=== PATIENT | male | born 1965 | race Hispanic/Latino ===

== ENCOUNTER 2020-12-28 14:24 | Inpatient (IN) | payer MEDICAID, OTHER ==
[~2020-12-28 14:24] MED LIST: Iopamidol-370 76% 500 ML 1 ML ONE
[2020-12-28 14:57] LABS: Hemoglobin 16.2 g/dL (14.0-18.0); Mean Corpuscular HGB CONC 30.6 g/dL (32.0-36.0); Mean Platelet Volume 7.8 fL (7.4-10.4); Platelet Count 256 thou/uL (130-400); Red Blood Cell (RBC) Count 4.91 mill/uL (4.70-6.10)
[2020-12-28 15:16] LABS: Lymphocytes 7 % (21-51); MDiff Complete? YES; Macrocytosis SLIGHT = 6-15 cells (100X) (0-5/hpf); Monocytes 6 % (0-10); Neutrophil 87 % (42-75); Nucleated RBC 1 % (0); Platelet Morphology Comment Appears Adequate; Polychromasia SLIGHT = 2-3 cells (100X) (0-2/hpf); White Blood Cell (WBC) Count 15.5 thou/uL (4.8-10.8)
[2020-12-28 15:21] LABS: Acetaminophen Less than 6.0 mcg/mL (10.0-30.0); Alcohol Less than 10 mg/dL (Less than 10); Salicylate Less than 8.0 mg/dL (15.0-30.0)
[2020-12-28 15:22] LABS: Actual Bicarbonate (HCO3a) 29.9 mEq/L (22-28); Analyzer IN Cardio ER; Base Excess (BEa) 1.3 mEq/L (-2.0 to +3.0); Calcium, Ionized (arterial) 1.18 mmol/L (1.12-1.30); Carboxyhemoglobin (COHb) 3.7 gm% (0.0-3.0); Hemoglobin (Hb) 15.4 g/dL (14.0-18.0); O2 Tension (PaO2), arterial 71.6 mmHg (80.0-100.0); Potassium - ABG Lab 4.51 mmol/L (3.70-5.30); pH, Arterial 7.28 (7.35-7.45)
[2020-12-28 15:26] LABS: ALV-art Gradient 204.275 mmHg (0-20); CO2 Tension 64.5 mmHg (35.0-45.0); Puncture Site RRA
[2020-12-28] MEDS ORDERED: Vancomycin 1 GM/200 ML BAG ONE ×2 (15:26→18:52)
[2020-12-28] MEDS ORDERED: Cefepime 2 GM VIAL ONE (15:26)
[2020-12-28 15:28] LABS: ALT (SGPT) 196 U/L (8-55); AST (SGOT) 194 U/L (5-34); Albumin 3.3 g/dL (3.5-5.0); Alkaline Phosphatase 235 U/L (40-110); Anion Gap 18 mmol/L (10-20); BUN (Urea Nitrogen) 37 mg/dL (8.4-25.7); Bilirubin, Total 0.9 mg/dL (0.2-1.2); Calc. Creatinine Clearance 0 mL/min (70-130); Calcium 9.7 mg/dL (7.8-10.44); Carbon Dioxide 30 mmol/L (22-29); Chloride 100 mmol/L (98-107); Globulin 3.3 g/dL (2.4-3.5); Glucose 104 mg/dL (70-105); Potassium 5.5 mmol/L (3.5-5.1); Protein, Total 6.6 g/dL (6.0-8.3); Sodium 142 mmol/L (136-145)
[2020-12-28 15:52] LABS: Bacteria/HPF None Seen HPF (None Seen); Bilirubin Negative (Negative); Blood, Urine Trace (Negative); Clarity Turbid (Clear); Glucose, Urine (Dipstick) Normal (Negative); Ketone, Urine Negative (Negative); Leukocyte Negative Leu/uL (Negative); Nitrite Negative (Negative); Protein, Urine (Dipstick) 300 mg/dL (Neg-Trace); RBC/HPF 0-3 HPF (0-3); Specific Gravity, Urine 1.027 (1.002-1.036); Squamous Epithelial 0-3 HPF (0-3); Urobilinogen Normal mg/dL (Less than 2); WBC/HPF 0-3 HPF (0-3)
[2020-12-28 15:59] LABS: CKMB 12.5 ng/mL (0-6.6)
[2020-12-28 16:02] LABS: Amphetamine Not Detected (NotDetected); Barbiturates Screen Not Detected (NotDetected); Benzodiazepine Screen Not Detected (NotDetected); Cocaine Metabolite Screen Not Detected (NotDetected); Medtox Control Line Valid? VALID (VALID); Medtox Reader # READER 1; Methadone Not Detected (NotDetected); Methamphetamine Not Detected (NotDetected); Opiate Screen Detected (NotDetected); Oxycodone Screen Not Detected (NotDetected); Phencyclidine (PCP) Not Detected (NotDetected); THC/Cannabinoid Screen Not Detected (NotDetected); Tricyclic Screen Not Detected (NotDetected)
[2020-12-28 16:31] LABS: SARS-CoV-2 NAA Rapid Test Not Detected (NotDetected)
[2020-12-28] MEDS ORDERED: Norepinephrine 8 MG/0.9% NS 250 ML ONE (16:58)
[2020-12-28] MEDS ORDERED: Naloxone HCl 2 mg/2 ml Syringe ONE (17:08)
[2020-12-28] MEDS ORDERED: Succinylcholine 200 MG/10 ml SYRINGE FS ONE (17:31)
[2020-12-28] MEDS ORDERED: Rocuronium Bromide 10 MG/ML (10ML VIAL) ONE ×2 (17:38)
[2020-12-28] MEDS ORDERED: Propofol 1,000 MG/100 ML VIAL IV ONE (17:41)
[2020-12-28] MEDS ORDERED: Midazolam HCl 5 mg/ml Vial ONE (17:46)
[2020-12-28 18:35] LABS: Analyzer IN Cardio ER; Base Excess (BEa) -1.1 mEq/L (-2.0 to +3.0); Calcium, Ionized (arterial) 1.19 mmol/L (1.12-1.30); Carboxyhemoglobin (COHb) 2.2 gm% (0.0-3.0); Hemoglobin (Hb) 16.6 g/dL (14.0-18.0); O2 Tension (PaO2), arterial 87.7 mmHg (80.0-100.0); Potassium - ABG Lab 4.44 mmol/L (3.70-5.30); pH, Arterial 7.32 (7.35-7.45)
[2020-12-28 18:37] LABS: Puncture Site RRA
[2020-12-28] MEDS ORDERED: Vancomycin 1.5 GRAM/300 ML BAG 1.5 GM in Premix Bag 1 BAG IVPB SCH (19:15)
[2020-12-28] MEDS ORDERED: Vancomycin HCl 1 GM in Sodium Chloride 0.9% 250 ML 250 ML IVPB SCH (19:15)
[2020-12-28] MEDS ORDERED: Electrolyte Replacement Protocol 1 EACH FS ONE (20:16)
[2020-12-28] MEDS ORDERED: Ventilator Sedation Protocol 1 EACH FS ONE (20:16)
[2020-12-28] MEDS ORDERED: Sodium Chloride 0.9% 1,000 ML IV SCH (20:30)
[2020-12-28] MEDS: Sodium Chloride 0.9% 1,000 ML IV SCH (20:36)
[2020-12-28] MEDS ORDERED: Morphine 2 MG/ML VIAL SLOW IVP PRN (20:45)
[2020-12-28] MEDS ORDERED: Propofol BOLUS 1,000 MG/100 ML VIAL IV PRN (20:45)
[2020-12-28] MEDS ORDERED: Electrolyte Replacement Protocol FS PRN (20:45)
[2020-12-28] MEDS ORDERED: Fentanyl BOLUS 250 ML IVPB PRN (20:45)
[2020-12-28] MEDS ORDERED: DISCONTINUE PREVIOUS NARCOTIC PAIN MEDICATIONS AND BENZODIAZEPINES FS SCH (20:45)
[2020-12-28] MEDS: Ascorbic Acid 500 mg Chewable Tablet PER TUBE SCH (21:32)
[2020-12-28] MEDS ORDERED: Ondansetron PF 4 MG/2 ML Vial IVP PRN (22:05)
[2020-12-28] MEDS ORDERED: Acetaminophen 325 MG TAB PO PRN (22:05)
[2020-12-28 23:13] LABS: Troponin I 1.184 ng/mL (< 0.028)
[2020-12-29 01:32] LABS: Critical Call Chem Troponin I RESULT DECREASING; Troponin I 1.037 ng/mL (< 0.028)
[2020-12-29] MEDS: Propofol 1,000 MG/100 ML VIAL IV PRN ×2 (01:36→10:43)
[2020-12-29] MEDS: Cefepime 1 GM in Sodium Chloride 0.9% 100 ML IVPB SCH ×2 (02:23→16:30)
[2020-12-29 04:28] LABS: Hemoglobin 14.3 g/dL (14.0-18.0); Mean Corpuscular HGB CONC 30.2 g/dL (32.0-36.0); Mean Corpuscular Hemoglobin 31.9 pg (27.0-31.0); Mean Platelet Volume 7.7 fL (7.4-10.4); Platelet Count 186 thou/uL (130-400); RBC Distribution Width 13.8 % (11.5-14.5); White Blood Cell (WBC) Count 12.4 thou/uL (4.8-10.8)
[2020-12-29 04:49] LABS: Lymphocytes 2 % (21-51); MDiff Complete? YES; Monocytes 2 % (0-10); Neutrophil 96 % (42-75); Nucleated RBC 1 % (0); Platelet Morphology Comment Appears Adequate
[2020-12-29 04:59] LABS: ALT (SGPT) 133 U/L (8-55); AST (SGOT) 115 U/L (5-34); Albumin 2.5 g/dL (3.5-5.0); Alkaline Phosphatase 160 U/L (40-110); Anion Gap 12 mmol/L (10-20); BUN (Urea Nitrogen) 31 mg/dL (8.4-25.7); Bilirubin, Total 0.9 mg/dL (0.2-1.2); Calc. Creatinine Clearance 77 mL/min (70-130); Calcium 8.4 mg/dL (7.8-10.44); Carbon Dioxide 27 mmol/L (22-29); Chloride 106 mmol/L (98-107); Globulin 2.4 g/dL (2.4-3.5); Glucose 82 mg/dL (70-105); Potassium 3.8 mmol/L (3.5-5.1); Protein, Total 4.9 g/dL (6.0-8.3); Sodium 141 mmol/L (136-145)
[2020-12-29 07:51] LABS: Actual Bicarbonate (HCO3a) 26.5 mEq/L (22-28); Base Excess (BEa) 3.1 mEq/L (-2.0 to +3.0); CO2 Tension 36.6 mmHg (35.0-45.0); Calcium, Ionized (arterial) 1.14 mmol/L (1.12-1.30); Carboxyhemoglobin (COHb) 0.9 gm% (0.0-3.0); Potassium - ABG Lab 3.98 mmol/L (3.70-5.30); pH, Arterial 7.48 (7.35-7.45)
[2020-12-29 07:52] LABS: O2 Tension (PaO2), arterial 45.7 mmHg (80.0-100.0)
[2020-12-29 07:53] LABS: Puncture Site LRA
[2020-12-29] MEDS: Ascorbic Acid 500 mg Chewable Tablet PER TUBE SCH ×2 (08:09→20:42)
[2020-12-29] MEDS: Sodium Chloride 0.9% 1,000 ML IV SCH ×2 (08:09→16:34)
[2020-12-29] MEDS: Pantoprazole 40 MG VIAL IVP SCH (08:09)
[2020-12-29] MEDS ORDERED: Enoxaparin Sodium 40 MG/0.4 ML SYRINGE SC SCH (09:00)
[2020-12-29] MEDS ORDERED: Prevnar 13-Val Conj/PF 0.5 ML SYRINGE IM ONE (09:00)
[2020-12-29] MEDS ORDERED: Fentanyl CADD 100 ML ONE (12:26)
[2020-12-29] MEDS: Fentanyl CADD 100 ML IV SCH (12:35)
[2020-12-29] MEDS: HEMLIBRA SC SCH (12:35)
[2020-12-29] MEDS ORDERED: Vancomycin 1.5 GRAM/300 ML BAG 1.5 GM in Premix Bag 1 BAG IVPB SCH (20:00)
[2020-12-29] MEDS: Lopinavir/Ritonavir 80 MG/20 MG per ML Oral Solution PER TUBE SCH (20:42)
[2020-12-29] MEDS: Vancomycin HCl 1.5 GM in Sodium Chloride 0.9% 250 ML 300 ML IVPB SCH (21:13)
[2020-12-29] MEDS: Norepinephrine 8 MG/0.9% NS 250 ML IVPB PRN (21:59)
[2020-12-30] MEDS ORDERED: Fentanyl CADD 100 ML ONE ×3 (00:16→20:56)
[2020-12-30] MEDS: Cefepime 1 GM in Sodium Chloride 0.9% 100 ML IVPB SCH ×2 (04:01→14:13)
[2020-12-30] MEDS: Sodium Chloride 0.9% 1,000 ML IV SCH (04:06)
[2020-12-30] MEDS: Propofol 1,000 MG/100 ML VIAL IV PRN ×2 (04:14→21:31)
[2020-12-30 05:12] LABS: Band 2 % (5-11); Hemoglobin 14.2 g/dL (14.0-18.0); Lymphocytes 3 % (21-51); MDiff Complete? YES; Mean Corpuscular Hemoglobin 32.5 pg (27.0-31.0); Mean Platelet Volume 7.9 fL (7.4-10.4); Monocytes 4 % (0-10); Neutrophil 91 % (42-75); Nucleated RBC 2 % (0); Platelet Count 196 thou/uL (130-400); Platelet Morphology Comment Appears Adequate; RBC Distribution Width 14.1 % (11.5-14.5); RBC Morphology Normal; Red Blood Cell (RBC) Count 4.37 mill/uL (4.70-6.10); White Blood Cell (WBC) Count 11.8 thou/uL (4.8-10.8)
[2020-12-30 05:15] LABS: ALT (SGPT) 98 U/L (8-55); AST (SGOT) 82 U/L (5-34); Albumin 2.5 g/dL (3.5-5.0); Alkaline Phosphatase 140 U/L (40-110); Anion Gap 12 mmol/L (10-20); BUN (Urea Nitrogen) 26 mg/dL (8.4-25.7); Bilirubin, Total 1.6 mg/dL (0.2-1.2); Calc. Creatinine Clearance 96 mL/min (70-130); Calcium 8.4 mg/dL (7.8-10.44); Carbon Dioxide 25 mmol/L (22-29); Cardiac Risk 2.8 (Less than 4.5); Chloride 109 mmol/L (98-107); Cholesterol 91 mg/dl (< 200 Desired); Globulin 2.6 g/dL (2.4-3.5); Glucose 88 mg/dL (70-105); HDL Cholesterol 32 mg/dL (>60 Neg Risk); LDL Cholesterol, Calculated 43 mg/dL; Potassium 3.7 mmol/L (3.5-5.1); Protein, Total 5.1 g/dL (6.0-8.3); Sodium 142 mmol/L (136-145); Triglycerides 80 mg/dL (Less than 150)
[2020-12-30 07:00] LABS: Actual Bicarbonate (HCO3a) 23.9 mEq/L (22-28); Base Excess (BEa) 0.7 mEq/L (-2.0 to +3.0); CO2 Tension 34.5 mmHg (35.0-45.0); Calcium, Ionized (arterial) 1.15 mmol/L (1.12-1.30); Carboxyhemoglobin (COHb) 0.9 gm% (0.0-3.0); Hemoglobin (Hb) 14.8 g/dL (14.0-18.0); O2 Tension (PaO2), arterial 72.7 mmHg (80.0-100.0); Potassium - ABG Lab 3.83 mmol/L (3.70-5.30); pH, Arterial 7.46 (7.35-7.45)
[2020-12-30 07:03] LABS: ALV-art Gradient 383.275 mmHg (0-20); Puncture Site RRA
[2020-12-30] MEDS: Pantoprazole 40 MG VIAL IVP SCH (08:15)
[2020-12-30] MEDS: Lopinavir/Ritonavir 80 MG/20 MG per ML Oral Solution PER TUBE SCH ×2 (08:15→21:03)
[2020-12-30] MEDS: Ascorbic Acid 500 mg Chewable Tablet PER TUBE SCH ×2 (08:15→21:03)
[2020-12-30 19:28] LABS: Vancomycin, Trough 10.9 ug/mL
[2020-12-30] MEDS ORDERED: Vancomycin 1.5 GRAM/300 ML BAG 1.5 GM in Premix Bag 1 BAG IVPB SCH (20:00)
[2020-12-30] MEDS: Fentanyl CADD 100 ML IV SCH (21:00)
[2020-12-30] MEDS: Vancomycin HCl 1.5 GM in Sodium Chloride 0.9% 250 ML 300 ML IVPB SCH (21:28)
[2020-12-31] MEDS: Cefepime 1 GM in Sodium Chloride 0.9% 100 ML IVPB SCH ×2 (03:35→14:56)
[2020-12-31 04:41] LABS: #Eosinphils 0.1 thou/uL (0.0-0.7); #Lymphocytes 0.6 thou/uL (1.20-3.40); #Monocytes 0.8 thou/uL (0.11-0.59); #Neutrophils 10.3 thou/uL (1.40-6.50); %Eosinophils 0.7 % (0.0-10.0); %Lymphocytes 4.9 % (21.0-51.0); %Monocytes 6.7 % (0.0-10.0); %Neutrophils 87.7 % (42.0-75.0); Mean Corpuscular Hemoglobin 31.8 pg (27.0-31.0); Mean Platelet Volume 7.7 fL (7.4-10.4); Platelet Count 182 thou/uL (130-400); RBC Distribution Width 13.8 % (11.5-14.5); White Blood Cell (WBC) Count 11.7 thou/uL (4.8-10.8)
[2020-12-31 05:02] LABS: ALT (SGPT) 78 U/L (8-55); AST (SGOT) 77 U/L (5-34); Albumin 2.5 g/dL (3.5-5.0); Alkaline Phosphatase 137 U/L (40-110); Anion Gap 11 mmol/L (10-20); BUN (Urea Nitrogen) 22 mg/dL (8.4-25.7); Bilirubin, Total 1.8 mg/dL (0.2-1.2); Calc. Creatinine Clearance 109 mL/min (70-130); Calcium 8.9 mg/dL (7.8-10.44); Carbon Dioxide 27 mmol/L (22-29); Chloride 109 mmol/L (98-107); Globulin 2.8 g/dL (2.4-3.5); Glucose 99 mg/dL (70-105); Potassium 3.9 mmol/L (3.5-5.1); Protein, Total 5.3 g/dL (6.0-8.3); Sodium 143 mmol/L (136-145)
[2020-12-31] MEDS: Propofol 1,000 MG/100 ML VIAL IV PRN ×2 (06:08→14:17)
[2020-12-31 07:21] LABS: Actual Bicarbonate (HCO3a) 26.8 mEq/L (22-28); Base Excess (BEa) 0.5 mEq/L (-2.0 to +3.0); CO2 Tension 49.4 mmHg (35.0-45.0); Calcium, Ionized (arterial) 1.21 mmol/L (1.12-1.30); Carboxyhemoglobin (COHb) 0.9 gm% (0.0-3.0); Hemoglobin (Hb) 14.8 g/dL (14.0-18.0); Potassium - ABG Lab 3.84 mmol/L (3.70-5.30); pH, Arterial 7.35 (7.35-7.45)
[2020-12-31 07:24] LABS: O2 Tension (PaO2), arterial 53.5 mmHg (80.0-100.0); Puncture Site RRA
[2020-12-31] MEDS ORDERED: Fentanyl CADD 100 ML ONE (07:25)
[2020-12-31] MEDS: DOBUTamine 500 mg/250 ml 250 ML IVPB SCH (08:33)
[2020-12-31] MEDS ORDERED: Vancomycin 1 GM in Premix Bag 1 BAG IVPB SCH (09:00)
[2020-12-31] MEDS: Lopinavir/Ritonavir 80 MG/20 MG per ML Oral Solution PER TUBE SCH ×2 (09:20→21:15)
[2020-12-31] MEDS: Pantoprazole 40 MG VIAL IVP SCH (09:21)
[2020-12-31] MEDS: Ascorbic Acid 500 mg Chewable Tablet PER TUBE SCH ×2 (09:21→21:15)
[2020-12-31] MEDS: Lorazepam 2 MG/ML VIAL SLOW IVP PRN (12:03)
[2020-12-31] MEDS: Norepinephrine 8 MG/0.9% NS 250 ML IVPB PRN (13:16)
[2020-12-31] MEDS ORDERED: Morphine 4 MG/ML VIAL SLOW IVP PRN (13:45)
[2021-01-01] MEDS ORDERED: Fentanyl CADD 100 ML ONE ×2 (02:09→16:12)
[2021-01-01] MEDS: Cefepime 1 GM in Sodium Chloride 0.9% 100 ML IVPB SCH ×2 (02:13→14:24)
[2021-01-01] MEDS: Fentanyl CADD 100 ML IV SCH ×2 (02:13→16:15)
[2021-01-01 06:13] LABS: ALT (SGPT) 62 U/L (8-55); AST (SGOT) 49 U/L (5-34); Albumin 2.5 g/dL (3.5-5.0); Alkaline Phosphatase 129 U/L (40-110); Anion Gap 8 mmol/L (10-20); BUN (Urea Nitrogen) 20 mg/dL (8.4-25.7); Bilirubin, Total 1.5 mg/dL (0.2-1.2); Calc. Creatinine Clearance 122 mL/min (70-130); Calcium 8.4 mg/dL (7.8-10.44); Carbon Dioxide 29 mmol/L (22-29); Chloride 109 mmol/L (98-107); Globulin 2.9 g/dL (2.4-3.5); Glucose 99 mg/dL (70-105); Potassium 4.3 mmol/L (3.5-5.1); Protein, Total 5.4 g/dL (6.0-8.3); Sodium 142 mmol/L (136-145)
[2021-01-01 07:08] LABS: #Eosinphils 0.1 thou/uL (0.0-0.7); #Lymphocytes 0.6 thou/uL (1.20-3.40); #Monocytes 0.9 thou/uL (0.11-0.59); #Neutrophils 8.7 thou/uL (1.40-6.50); %Basophils 0.3 % (0.0-1.0); %Eosinophils 1.3 % (0.0-10.0); %Lymphocytes 5.4 % (21.0-51.0); %Monocytes 9.1 % (0.0-10.0); Hemoglobin 14.2 g/dL (14.0-18.0); Mean Corpuscular HGB CONC 30.3 g/dL (32.0-36.0); Mean Corpuscular Hemoglobin 32.3 pg (27.0-31.0); Mean Platelet Volume 7.8 fL (7.4-10.4); Platelet Count 166 thou/uL (130-400); RBC Distribution Width 14.1 % (11.5-14.5); Red Blood Cell (RBC) Count 4.39 mill/uL (4.70-6.10); White Blood Cell (WBC) Count 10.4 thou/uL (4.8-10.8)
[2021-01-01 07:09] LABS: RBC Morphology Normal
[2021-01-01 07:22] LABS: Base Excess (BEa) -1.5 mEq/L (-2.0 to +3.0); CO2 Tension 48.4 mmHg (35.0-45.0); Calcium, Ionized (arterial) 1.23 mmol/L (1.12-1.30); Carboxyhemoglobin (COHb) 0.9 gm% (0.0-3.0); Hemoglobin (Hb) 16.8 g/dL (14.0-18.0); Potassium - ABG Lab 4.22 mmol/L (3.70-5.30); pH, Arterial 7.33 (7.35-7.45)
[2021-01-01 07:43] LABS: O2 Tension (PaO2), arterial 50.3 mmHg (80.0-100.0)
[2021-01-01 07:44] LABS: Puncture Site RRA
[2021-01-01] MEDS: Lopinavir/Ritonavir 80 MG/20 MG per ML Oral Solution PER TUBE SCH ×2 (09:41→20:42)
[2021-01-01] MEDS: Ascorbic Acid 500 mg Chewable Tablet PER TUBE SCH ×2 (09:41→20:42)
[2021-01-01] MEDS: Pantoprazole 40 MG GRANULES PACKET PER TUBE SCH (09:41)
[2021-01-01] MEDS: Furosemide 40 MG/4 ML VIAL SLOW IVP SCH ×2 (09:41→20:42)
[2021-01-01] MEDS: Norepinephrine 8 MG/0.9% NS 250 ML IVPB PRN (10:10)
[2021-01-01] MEDS: Lorazepam 2 MG/ML VIAL SLOW IVP PRN (10:10)
[2021-01-01] MEDS: methylPREDNISolone Sod Succ 40 MG VIAL IVP SCH ×2 (12:26→18:15)
[2021-01-01] MEDS: Propofol 1,000 MG/100 ML VIAL IV PRN ×3 (13:56→20:42)
[2021-01-01] MEDS: DOBUTamine 500 mg/250 ml 250 ML IVPB SCH (22:54)
[2021-01-02] MEDS: methylPREDNISolone Sod Succ 40 MG VIAL IVP SCH ×5 (00:26→23:43)
[2021-01-02] MEDS: Metoclopramide HCl 10 MG/2 ML VIAL IVP SCH ×4 (02:00→20:38)
[2021-01-02] MEDS ORDERED: Fentanyl CADD 100 ML ONE ×2 (03:22→15:59)
[2021-01-02] MEDS: Cefepime 1 GM in Sodium Chloride 0.9% 100 ML IVPB SCH ×2 (03:34→15:21)
[2021-01-02] MEDS: Lorazepam 2 MG/ML VIAL SLOW IVP PRN ×3 (03:52→13:48)
[2021-01-02] MEDS: Fentanyl CADD 100 ML IV SCH ×2 (04:16→16:05)
[2021-01-02 05:35] LABS: ALT (SGPT) 48 U/L (8-55); AST (SGOT) 38 U/L (5-34); Albumin 2.8 g/dL (3.5-5.0); Alkaline Phosphatase 114 U/L (40-110); Anion Gap 10 mmol/L (10-20); BUN (Urea Nitrogen) 26 mg/dL (8.4-25.7); Calc. Creatinine Clearance 112 mL/min (70-130); Calcium 8.6 mg/dL (7.8-10.44); Carbon Dioxide 34 mmol/L (22-29); Chloride 104 mmol/L (98-107); Globulin 2.8 g/dL (2.4-3.5); Glucose 137 mg/dL (70-105); Protein, Total 5.6 g/dL (6.0-8.3); Sodium 144 mmol/L (136-145)
[2021-01-02 05:44] LABS: #Lymphocytes 0.2 thou/uL (1.20-3.40); #Monocytes 0.2 thou/uL (0.11-0.59); #Neutrophils 10.3 thou/uL (1.40-6.50); %Basophils 0.1 % (0.0-1.0); %Lymphocytes 2.2 % (21.0-51.0); %Monocytes 1.5 % (0.0-10.0); %Neutrophils 96.2 % (42.0-75.0); Hemoglobin 13.7 g/dL (14.0-18.0); MDiff Complete? YES; Macrocytosis SLIGHT = 6-15 cells (100X) (0-5/hpf); Mean Corpuscular HGB CONC 29.4 g/dL (32.0-36.0); Mean Corpuscular Hemoglobin 31.4 pg (27.0-31.0); Mean Platelet Volume 8.1 fL (7.4-10.4); Platelet Count 142 thou/uL (130-400); RBC Distribution Width 13.7 % (11.5-14.5); Red Blood Cell (RBC) Count 4.38 mill/uL (4.70-6.10); White Blood Cell (WBC) Count 10.7 thou/uL (4.8-10.8)
[2021-01-02 07:05] LABS: Actual Bicarbonate (HCO3a) 30.1 mEq/L (22-28); Base Excess (BEa) 4.5 mEq/L (-2.0 to +3.0); CO2 Tension 48.1 mmHg (35.0-45.0); Calcium, Ionized (arterial) 1.16 mmol/L (1.12-1.30); Carboxyhemoglobin (COHb) 0.7 gm% (0.0-3.0); Hemoglobin (Hb) 14.7 g/dL (14.0-18.0); Potassium - ABG Lab 3.98 mmol/L (3.70-5.30); pH, Arterial 7.41 (7.35-7.45)
[2021-01-02 07:16] LABS: O2 Tension (PaO2), arterial 54.3 mmHg (80.0-100.0)
[2021-01-02 07:17] LABS: ALV-art Gradient 598.575 mmHg (0-20); Puncture Site RRA
[2021-01-02] MEDS: Furosemide 40 MG/4 ML VIAL SLOW IVP SCH (08:00)
[2021-01-02] MEDS: Pantoprazole 40 MG GRANULES PACKET PER TUBE SCH (08:00)
[2021-01-02] MEDS: Ascorbic Acid 500 mg Chewable Tablet PER TUBE SCH ×2 (08:01→20:38)
[2021-01-02] MEDS: Propofol 1,000 MG/100 ML VIAL IV PRN ×3 (08:34→20:41)
[2021-01-02] MEDS: Lopinavir/Ritonavir 80 MG/20 MG per ML Oral Solution PER TUBE SCH ×2 (08:34→20:41)
[2021-01-02 13:03] LABS: Actual Bicarbonate (HCO3a) 32.1 mEq/L (22-28); Base Excess (BEa) 7.3 mEq/L (-2.0 to +3.0); CO2 Tension 45.6 mmHg (35.0-45.0); Calcium, Ionized (arterial) 1.18 mmol/L (1.12-1.30); Carboxyhemoglobin (COHb) 0.7 gm% (0.0-3.0); Hemoglobin (Hb) 15.7 g/dL (14.0-18.0); Potassium - ABG Lab 3.84 mmol/L (3.70-5.30); pH, Arterial 7.47 (7.35-7.45)
[2021-01-02 13:44] LABS: O2 Tension (PaO2), arterial 40.6 mmHg (80.0-100.0); Puncture Site RRA
[2021-01-02 14:18] LABS: Actual Bicarbonate (HCO3a) 29.9 mEq/L (22-28); Base Excess (BEa) 8.8 mEq/L (-2.0 to +3.0); CO2 Tension 30.8 mmHg (35.0-45.0); Calcium, Ionized (arterial) 1.17 mmol/L (1.12-1.30); Carboxyhemoglobin (COHb) 0.7 gm% (0.0-3.0); Potassium - ABG Lab 3.54 mmol/L (3.70-5.30)
[2021-01-02 14:27] LABS: pH, Arterial 7.61 (7.35-7.45)
[2021-01-02 14:29] LABS: O2 Tension (PaO2), arterial 36.5 mmHg (80.0-100.0)
[2021-01-02 14:32] LABS: Puncture Site RRA
[2021-01-02] MEDS ORDERED: Furosemide 40 MG/4 ML VIAL SLOW IVP SCH (21:00)
[2021-01-03] MEDS: Cefepime 1 GM in Sodium Chloride 0.9% 100 ML IVPB SCH ×2 (02:19→15:06)
[2021-01-03] MEDS: Metoclopramide HCl 10 MG/2 ML VIAL IVP SCH ×4 (02:19→20:04)
[2021-01-03] MEDS ORDERED: Fentanyl CADD 100 ML ONE (04:31)
[2021-01-03 05:01] LABS: ALT (SGPT) 47 U/L (8-55); AST (SGOT) 36 U/L (5-34); Albumin 2.9 g/dL (3.5-5.0); Alkaline Phosphatase 111 U/L (40-110); Anion Gap 17 mmol/L (10-20); BUN (Urea Nitrogen) 35 mg/dL (8.4-25.7); Bilirubin, Total 1.8 mg/dL (0.2-1.2); Calc. Creatinine Clearance 102 mL/min (70-130); Calcium 8.9 mg/dL (7.8-10.44); Carbon Dioxide 27 mmol/L (22-29); Chloride 102 mmol/L (98-107); Globulin 2.8 g/dL (2.4-3.5); Glucose 131 mg/dL (70-105); Potassium 3.4 mmol/L (3.5-5.1); Protein, Total 5.7 g/dL (6.0-8.3); Sodium 143 mmol/L (136-145)
[2021-01-03] MEDS: methylPREDNISolone Sod Succ 40 MG VIAL IVP SCH ×4 (05:15→23:35)
[2021-01-03] MEDS: Fentanyl CADD 100 ML IV SCH (05:49)
[2021-01-03] MEDS ORDERED: Potassium Chloride 40 MEQ in Premix Bag 1 BAG IVPB SCH (06:00)
[2021-01-03 06:12] LABS: Band 7 % (5-11); Lymphocytes 2 % (21-51); MDiff Complete? YES; Mean Corpuscular HGB CONC 29.4 g/dL (32.0-36.0); Mean Corpuscular Hemoglobin 30.4 pg (27.0-31.0); Mean Platelet Volume 8.2 fL (7.4-10.4); Monocytes 3 % (0-10); Neutrophil 88 % (42-75); Platelet Count 167 thou/uL (130-400); RBC Distribution Width 13.7 % (11.5-14.5); Red Blood Cell (RBC) Count 4.59 mill/uL (4.70-6.10); White Blood Cell (WBC) Count 15.4 thou/uL (4.8-10.8)
[2021-01-03 07:04] LABS: Actual Bicarbonate (HCO3a) 26.4 mEq/L (22-28); Base Excess (BEa) 7.7 mEq/L (-2.0 to +3.0); Calcium, Ionized (arterial) 1.14 mmol/L (1.12-1.30); Carboxyhemoglobin (COHb) 0.7 gm% (0.0-3.0); Hemoglobin (Hb) 17.7 g/dL (14.0-18.0); O2 Tension (PaO2), arterial 68.1 mmHg (80.0-100.0); Potassium - ABG Lab 2.99 mmol/L (3.70-5.30)
[2021-01-03] MEDS ORDERED: Norepinephrine 8 MG/0.9% NS 250 ML IVPB PRN (07:14)
[2021-01-03] MEDS ORDERED: DOBUTamine 500 mg/250 ml 250 ML IVPB SCH (07:14)
[2021-01-03 07:53] LABS: CO2 Tension 23.7 mmHg (35.0-45.0); Puncture Site RRA; pH, Arterial 7.66 (7.35-7.45)
[2021-01-03 07:54] LABS: ALV-art Gradient 330.075 mmHg (0-20)
[2021-01-03] MEDS: Ascorbic Acid 500 mg Chewable Tablet PER TUBE SCH ×2 (08:46→21:36)
[2021-01-03] MEDS: Pantoprazole 40 MG GRANULES PACKET PER TUBE SCH (08:46)
[2021-01-03] MEDS: Propofol 1,000 MG/100 ML VIAL IV PRN ×2 (08:54→17:53)
[2021-01-03] MEDS: Furosemide 100 MG/10 ML VIAL SLOW IVP SCH ×2 (08:55→21:37)
[2021-01-03] MEDS: Lopinavir/Ritonavir 80 MG/20 MG per ML Oral Solution PER TUBE SCH ×2 (08:59→21:36)
[2021-01-03] MEDS: Lorazepam 2 MG/ML VIAL SLOW IVP PRN ×2 (15:20→23:35)
[2021-01-04] MEDS ORDERED: Fentanyl CADD 100 ML ONE ×2 (01:38→20:49)
[2021-01-04] MEDS: Fentanyl CADD 100 ML IV SCH ×2 (01:41→21:07)
[2021-01-04] MEDS: Cefepime 1 GM in Sodium Chloride 0.9% 100 ML IVPB SCH ×2 (02:35→14:08)
[2021-01-04] MEDS: Propofol 1,000 MG/100 ML VIAL IV PRN ×4 (02:36→18:48)
[2021-01-04] MEDS: Metoclopramide HCl 10 MG/2 ML VIAL IVP SCH ×4 (02:37→20:53)
[2021-01-04 04:08] LABS: #Lymphocytes 0.3 thou/uL (1.20-3.40); #Monocytes 0.8 thou/uL (0.11-0.59); #Neutrophils 14.6 thou/uL (1.40-6.50); %Basophils 0.1 % (0.0-1.0); %Lymphocytes 1.8 % (21.0-51.0); %Monocytes 5.3 % (0.0-10.0); %Neutrophils 92.8 % (42.0-75.0); Hemoglobin 14.7 g/dL (14.0-18.0); Mean Corpuscular HGB CONC 31.9 g/dL (32.0-36.0); Mean Corpuscular Hemoglobin 32.2 pg (27.0-31.0); Mean Platelet Volume 8.5 fL (7.4-10.4); Platelet Count 178 thou/uL (130-400); RBC Distribution Width 13.7 % (11.5-14.5); Red Blood Cell (RBC) Count 4.56 mill/uL (4.70-6.10); White Blood Cell (WBC) Count 15.7 thou/uL (4.8-10.8)
[2021-01-04 04:10] LABS: ALT (SGPT) 43 U/L (8-55); AST (SGOT) 32 U/L (5-34); Alkaline Phosphatase 105 U/L (40-110); Anion Gap 16 mmol/L (10-20); BUN (Urea Nitrogen) 43 mg/dL (8.4-25.7); Bilirubin, Total 1.8 mg/dL (0.2-1.2); Calc. Creatinine Clearance 100 mL/min (70-130); Calcium 8.9 mg/dL (7.8-10.44); Carbon Dioxide 28 mmol/L (22-29); Chloride 98 mmol/L (98-107); Globulin 2.9 g/dL (2.4-3.5); Glucose 128 mg/dL (70-105); Protein, Total 5.9 g/dL (6.0-8.3); Sodium 139 mmol/L (136-145)
[2021-01-04 04:25] LABS: Potassium 2.8 mmol/L (3.5-5.1)
[2021-01-04] MEDS: methylPREDNISolone Sod Succ 40 MG VIAL IVP SCH ×4 (05:11→23:44)
[2021-01-04] MEDS: Potassium Chloride 40 MEQ in Premix Bag 1 BAG IVPB SCH ×2 (05:12→09:47)
[2021-01-04 06:49] LABS: Actual Bicarbonate (HCO3a) 29.7 mEq/L (22-28); Base Excess (BEa) 10.1 mEq/L (-2.0 to +3.0); CO2 Tension 26.4 mmHg (35.0-45.0); Calcium, Ionized (arterial) 1.11 mmol/L (1.12-1.30); Carboxyhemoglobin (COHb) 0.5 gm% (0.0-3.0); Hemoglobin (Hb) 14.9 g/dL (14.0-18.0); O2 Tension (PaO2), arterial 61.5 mmHg (80.0-100.0); Potassium - ABG Lab 3.15 mmol/L (3.70-5.30)
[2021-01-04 06:51] LABS: Puncture Site LRA; pH, Arterial 7.67 (7.35-7.45)
[2021-01-04] MEDS: Ascorbic Acid 500 mg Chewable Tablet PER TUBE SCH ×2 (08:19→20:53)
[2021-01-04] MEDS: Lopinavir/Ritonavir 80 MG/20 MG per ML Oral Solution PER TUBE SCH ×2 (08:19→20:53)
[2021-01-04] MEDS: Pantoprazole 40 MG GRANULES PACKET PER TUBE SCH (08:20)
[2021-01-04 15:20] LABS: Potassium 4.4 mmol/L (3.5-5.1)
[2021-01-04] MEDS: Lorazepam 2 MG/ML VIAL SLOW IVP PRN (18:47)
[2021-01-05] MEDS: Cefepime 1 GM in Sodium Chloride 0.9% 100 ML IVPB SCH ×2 (02:22→15:23)
[2021-01-05] MEDS: Metoclopramide HCl 10 MG/2 ML VIAL IVP SCH ×4 (02:22→20:27)
[2021-01-05] MEDS: Lorazepam 2 MG/ML VIAL SLOW IVP PRN ×3 (05:37→20:25)
[2021-01-05] MEDS: methylPREDNISolone Sod Succ 40 MG VIAL IVP SCH ×3 (05:46→17:41)
[2021-01-05 06:27] LABS: ALT (SGPT) 37 U/L (8-55); AST (SGOT) 24 U/L (5-34); Albumin 2.9 g/dL (3.5-5.0); Alkaline Phosphatase 104 U/L (40-110); Anion Gap 13 mmol/L (10-20); BUN (Urea Nitrogen) 41 mg/dL (8.4-25.7); Bilirubin, Total 1.3 mg/dL (0.2-1.2); Calc. Creatinine Clearance 115 mL/min (70-130); Calcium 9.1 mg/dL (7.8-10.44); Carbon Dioxide 32 mmol/L (22-29); Chloride 102 mmol/L (98-107); Globulin 2.7 g/dL (2.4-3.5); Glucose 136 mg/dL (70-105); Protein, Total 5.6 g/dL (6.0-8.3); Sodium 143 mmol/L (136-145)
[2021-01-05 06:44] LABS: Band 10 % (5-11); Hemoglobin 13.5 g/dL (14.0-18.0); Lymphocytes 2 % (21-51); MDiff Complete? YES; Macrocytosis SLIGHT = 6-15 cells (100X) (0-5/hpf); Mean Corpuscular HGB CONC 29.1 g/dL (32.0-36.0); Mean Corpuscular Hemoglobin 30.5 pg (27.0-31.0); Neutrophil 88 % (42-75); Platelet Count 190 thou/uL (130-400); RBC Distribution Width 13.7 % (11.5-14.5); Red Blood Cell (RBC) Count 4.43 mill/uL (4.70-6.10); White Blood Cell (WBC) Count 21.6 thou/uL (4.8-10.8)
[2021-01-05 07:28] LABS: Actual Bicarbonate (HCO3a) 36.5 mEq/L (22-28); Base Excess (BEa) 8.7 mEq/L (-2.0 to +3.0); Calcium, Ionized (arterial) 1.21 mmol/L (1.12-1.30); Carboxyhemoglobin (COHb) 0.7 gm% (0.0-3.0); Hemoglobin (Hb) 14.2 g/dL (14.0-18.0); pH, Arterial 7.37 (7.35-7.45)
[2021-01-05 07:29] LABS: CO2 Tension 64.8 mmHg (35.0-45.0)
[2021-01-05 07:30] LABS: O2 Tension (PaO2), arterial 50.8 mmHg (80.0-100.0); Puncture Site LRA
[2021-01-05] MEDS: Lopinavir/Ritonavir 80 MG/20 MG per ML Oral Solution PER TUBE SCH ×2 (10:07→20:30)
[2021-01-05] MEDS: Ascorbic Acid 500 mg Chewable Tablet PER TUBE SCH ×2 (10:07→20:29)
[2021-01-05] MEDS: Pantoprazole 40 MG GRANULES PACKET PER TUBE SCH (10:07)
[2021-01-05] MEDS: HEMLIBRA SC SCH (11:05)
[2021-01-05] MEDS ORDERED: Fentanyl CADD 100 ML ONE (12:16)
[2021-01-05] MEDS: Propofol 1,000 MG/100 ML VIAL IV PRN ×2 (12:30→18:34)
[2021-01-05 19:49] LABS: Body Fluid Source Bronchioalveol Lavag; Clarity Cloudy/Turbid (Clear); Tube # EDTA
[2021-01-05 19:50] LABS: BF Color Colorless; BF RBC Count - Manual 745 /cu.mm; BF WBC/Nonhematics Ct.-Manual 1240 /cu.mm
[2021-01-05 20:15] LABS: BF Segmented Neutrophils 83 %
[2021-01-05 20:16] LABS: Cell Count Non Hematic 17 %
[2021-01-06] MEDS ORDERED: Fentanyl CADD 100 ML ONE ×2 (00:45→13:32)
[2021-01-06] MEDS: Fentanyl CADD 100 ML IV SCH (00:49)
[2021-01-06] MEDS: methylPREDNISolone Sod Succ 40 MG VIAL IVP SCH ×4 (01:12→17:19)
[2021-01-06] MEDS: Propofol 1,000 MG/100 ML VIAL IV PRN ×3 (02:38→17:19)
[2021-01-06] MEDS: Cefepime 1 GM in Sodium Chloride 0.9% 100 ML IVPB SCH ×2 (02:47→15:48)
[2021-01-06] MEDS: Metoclopramide HCl 10 MG/2 ML VIAL IVP SCH ×4 (02:47→20:58)
[2021-01-06 05:15] LABS: Hemoglobin 13.8 g/dL (14.0-18.0); MDiff Complete? YES; Mean Corpuscular HGB CONC 30.3 g/dL (32.0-36.0); Mean Platelet Volume 8.9 fL (7.4-10.4); Platelet Count 161 thou/uL (130-400); RBC Distribution Width 13.6 % (11.5-14.5); Red Blood Cell (RBC) Count 4.43 mill/uL (4.70-6.10); White Blood Cell (WBC) Count 15.8 thou/uL (4.8-10.8)
[2021-01-06 05:16] LABS: Band 7 % (5-11); Lymphocytes 1 % (21-51); Monocytes 1 % (0-10); Neutrophil 91 % (42-75)
[2021-01-06 07:33] LABS: Actual Bicarbonate (HCO3a) 28.6 mEq/L (22-28); Calcium, Ionized (arterial) 1.13 mmol/L (1.12-1.30); Carboxyhemoglobin (COHb) 0.6 gm% (0.0-3.0); Hemoglobin (Hb) 14.5 g/dL (14.0-18.0); Potassium - ABG Lab 3.73 mmol/L (3.70-5.30)
[2021-01-06 07:48] LABS: CO2 Tension 25.8 mmHg (35.0-45.0); O2 Tension (PaO2), arterial 42.1 mmHg (80.0-100.0); pH, Arterial 7.66 (7.35-7.45)
[2021-01-06 07:49] LABS: Puncture Site LRA
[2021-01-06] MEDS: Ascorbic Acid 500 mg Chewable Tablet PER TUBE SCH ×2 (08:51→21:04)
[2021-01-06] MEDS: Pantoprazole 40 MG GRANULES PACKET PER TUBE SCH (08:51)
[2021-01-06] MEDS: Lopinavir/Ritonavir 80 MG/20 MG per ML Oral Solution PER TUBE SCH ×2 (08:51→21:04)
[2021-01-06] MEDS: Lorazepam 2 MG/ML VIAL SLOW IVP PRN (12:43)
[2021-01-07] MEDS: methylPREDNISolone Sod Succ 40 MG VIAL IVP SCH ×4 (00:20→17:17)
[2021-01-07] MEDS ORDERED: Fentanyl CADD 100 ML ONE ×3 (02:50→15:51)
[2021-01-07] MEDS: Cefepime 1 GM in Sodium Chloride 0.9% 100 ML IVPB SCH ×2 (02:58→15:22)
[2021-01-07] MEDS: Metoclopramide HCl 10 MG/2 ML VIAL IVP SCH ×4 (02:58→20:24)
[2021-01-07] MEDS: Propofol 1,000 MG/100 ML VIAL IV PRN ×4 (03:25→23:39)
[2021-01-07] MEDS: Lorazepam 2 MG/ML VIAL SLOW IVP PRN ×2 (04:26→17:17)
[2021-01-07 04:40] LABS: Hemoglobin 13.5 g/dL (14.0-18.0); Mean Corpuscular HGB CONC 30.9 g/dL (32.0-36.0); Mean Corpuscular Hemoglobin 32.1 pg (27.0-31.0); Mean Platelet Volume 8.5 fL (7.4-10.4); Platelet Count 184 thou/uL (130-400); RBC Distribution Width 13.6 % (11.5-14.5); Red Blood Cell (RBC) Count 4.21 mill/uL (4.70-6.10); White Blood Cell (WBC) Count 19.2 thou/uL (4.8-10.8)
[2021-01-07 05:10] LABS: Band 10 % (5-11); Lymphocytes 2 % (21-51); MDiff Complete? YES; Neutrophil 88 % (42-75)
[2021-01-07 06:51] LABS: Actual Bicarbonate (HCO3a) 28.4 mEq/L (22-28); Base Excess (BEa) 5.9 mEq/L (-2.0 to +3.0); CO2 Tension 34.4 mmHg (35.0-45.0); Calcium, Ionized (arterial) 1.16 mmol/L (1.12-1.30); Carboxyhemoglobin (COHb) 0.5 gm% (0.0-3.0); Hemoglobin (Hb) 13.3 g/dL (14.0-18.0); pH, Arterial 7.54 (7.35-7.45)
[2021-01-07 06:53] LABS: O2 Tension (PaO2), arterial 46.4 mmHg (80.0-100.0)
[2021-01-07 06:54] LABS: Puncture Site LRA
[2021-01-07 07:57] LABS: Anion Gap 15 mmol/L (10-20); BUN (Urea Nitrogen) 42 mg/dL (8.4-25.7); Calc. Creatinine Clearance 125 mL/min (70-130); Calcium 8.5 mg/dL (7.8-10.44); Carbon Dioxide 28 mmol/L (22-29); Chloride 102 mmol/L (98-107); Glucose 112 mg/dL (70-105); Sodium 141 mmol/L (136-145)
[2021-01-07] MEDS: Ascorbic Acid 500 mg Chewable Tablet PER TUBE SCH ×2 (08:12→20:24)
[2021-01-07] MEDS: Lopinavir/Ritonavir 80 MG/20 MG per ML Oral Solution PER TUBE SCH ×2 (08:12→20:24)
[2021-01-07] MEDS: Pantoprazole 40 MG GRANULES PACKET PER TUBE SCH (08:13)
[2021-01-07 14:14] LABS: %CD4 (Helper/Inducer) 39.4 % (30.8-58.5); Absolute CD4 79 /uL (359-1519); Lymphocytes/Gated Cell Count 0.2 x10E3/uL (0.7-3.1); Total Lymphocyte 1 % (Not Estab.)
[2021-01-08] MEDS: methylPREDNISolone Sod Succ 40 MG VIAL IVP SCH ×5 (00:15→23:17)
[2021-01-08] MEDS: Metoclopramide HCl 10 MG/2 ML VIAL IVP SCH ×4 (02:03→20:18)
[2021-01-08] MEDS: Cefepime 1 GM in Sodium Chloride 0.9% 100 ML IVPB SCH (02:03)
[2021-01-08 05:19] LABS: Anion Gap 12 mmol/L (10-20); BUN (Urea Nitrogen) 37 mg/dL (8.4-25.7); Calc. Creatinine Clearance 130 mL/min (70-130); Calcium 8.7 mg/dL (7.8-10.44); Carbon Dioxide 30 mmol/L (22-29); Chloride 105 mmol/L (98-107); Glucose 126 mg/dL (70-105); Potassium 3.3 mmol/L (3.5-5.1); Sodium 144 mmol/L (136-145)
[2021-01-08] MEDS ORDERED: Fentanyl CADD 100 ML ONE ×2 (05:19→18:44)
[2021-01-08 05:22] LABS: Band 1 % (5-11); Hemoglobin 13.2 g/dL (14.0-18.0); Hypochromia SLIGHT = 6-15 cells (100X) (0-5/hpf); MDiff Complete? YES; Macrocytosis SLIGHT = 6-15 cells (100X) (0-5/hpf); Mean Corpuscular HGB CONC 31.7 g/dL (32.0-36.0); Mean Corpuscular Hemoglobin 32.3 pg (27.0-31.0); Mean Platelet Volume 8.2 fL (7.4-10.4); Monocytes 8 % (0-10); Neutrophil 91 % (42-75); Platelet Count 171 thou/uL (130-400); Platelet Morphology Comment Appears Adequate; RBC Distribution Width 13.3 % (11.5-14.5); Red Blood Cell (RBC) Count 4.07 mill/uL (4.70-6.10); White Blood Cell (WBC) Count 21.9 thou/uL (4.8-10.8)
[2021-01-08] MEDS ORDERED: Fentanyl CADD 100 ML IV SCH ×2 (06:30)
[2021-01-08] MEDS: Propofol 1,000 MG/100 ML VIAL IV PRN ×4 (06:31→21:35)
[2021-01-08] MEDS: Potassium Chloride 20 MEQ in Premix Bag 1 BAG IVPB SCH ×2 (06:35→09:00)
[2021-01-08 06:51] LABS: Actual Bicarbonate (HCO3a) 25.8 mEq/L (22-28); Base Excess (BEa) 1.8 mEq/L (-2.0 to +3.0); CO2 Tension 38.1 mmHg (35.0-45.0); Carboxyhemoglobin (COHb) 0.3 gm% (0.0-3.0); Hemoglobin (Hb) 13.4 g/dL (14.0-18.0); pH, Arterial 7.45 (7.35-7.45)
[2021-01-08 06:52] LABS: O2 Tension (PaO2), arterial 54.6 mmHg (80.0-100.0); Puncture Site LRA
[2021-01-08 06:53] LABS: ALV-art Gradient 610.775 mmHg (0-20)
[2021-01-08] MEDS: Ascorbic Acid 500 mg Chewable Tablet PER TUBE SCH ×2 (08:55→20:18)
[2021-01-08] MEDS: Furosemide 40 MG/4 ML VIAL SLOW IVP SCH ×2 (08:55→20:17)
[2021-01-08] MEDS: Pantoprazole 40 MG GRANULES PACKET PER TUBE SCH (08:56)
[2021-01-08] MEDS: Lopinavir/Ritonavir 80 MG/20 MG per ML Oral Solution PER TUBE SCH ×2 (11:23→20:17)
[2021-01-08 16:13] LABS: HIV-1 Quantitative, RNA PCR <20 copies/mL (.)
[2021-01-08] MEDS: Lorazepam 2 MG/ML VIAL SLOW IVP PRN (16:40)
[2021-01-08] MEDS: Fentanyl CADD 100 ML IV SCH (18:47)
[2021-01-09] MEDS: Propofol 1,000 MG/100 ML VIAL IV PRN ×5 (02:45→20:47)
[2021-01-09] MEDS: Metoclopramide HCl 10 MG/2 ML VIAL IVP SCH ×4 (02:46→20:48)
[2021-01-09 04:46] LABS: Hemoglobin 12.7 g/dL (14.0-18.0); Mean Corpuscular HGB CONC 31.6 g/dL (32.0-36.0); Mean Corpuscular Hemoglobin 31.6 pg (27.0-31.0); Mean Platelet Volume 8.6 fL (7.4-10.4); Platelet Count 180 thou/uL (130-400); RBC Distribution Width 13.2 % (11.5-14.5); Red Blood Cell (RBC) Count 4.02 mill/uL (4.70-6.10); White Blood Cell (WBC) Count 20.4 thou/uL (4.8-10.8)
[2021-01-09 05:05] LABS: Band 4 % (5-11); Lymphocytes 3 % (21-51); MDiff Complete? YES; Monocytes 3 % (0-10); Neutrophil 90 % (42-75)
[2021-01-09 05:07] LABS: Anion Gap 17 mmol/L (10-20); BUN (Urea Nitrogen) 39 mg/dL (8.4-25.7); Calc. Creatinine Clearance 122 mL/min (70-130); Calcium 8.2 mg/dL (7.8-10.44); Carbon Dioxide 27 mmol/L (22-29); Chloride 102 mmol/L (98-107); Glucose 119 mg/dL (70-105); Potassium 3.6 mmol/L (3.5-5.1); Sodium 142 mmol/L (136-145)
[2021-01-09] MEDS: methylPREDNISolone Sod Succ 40 MG VIAL IVP SCH ×3 (05:14→18:02)
[2021-01-09 07:12] LABS: Actual Bicarbonate (HCO3a) 27.3 mEq/L (22-28); Base Excess (BEa) 6.3 mEq/L (-2.0 to +3.0); CO2 Tension 28.8 mmHg (35.0-45.0); Calcium, Ionized (arterial) 1.11 mmol/L (1.12-1.30); Carboxyhemoglobin (COHb) 0.4 gm% (0.0-3.0); Hemoglobin (Hb) 13.4 g/dL (14.0-18.0); Potassium - ABG Lab 3.53 mmol/L (3.70-5.30)
[2021-01-09 07:19] LABS: O2 Tension (PaO2), arterial 48.5 mmHg (80.0-100.0); Puncture Site RRA
[2021-01-09] MEDS: Lopinavir/Ritonavir 80 MG/20 MG per ML Oral Solution PER TUBE SCH ×2 (08:11→20:50)
[2021-01-09] MEDS: Lorazepam 2 MG/ML VIAL SLOW IVP PRN (08:11)
[2021-01-09] MEDS: Ascorbic Acid 500 mg Chewable Tablet PER TUBE SCH ×2 (08:11→20:48)
[2021-01-09] MEDS: Pantoprazole 40 MG GRANULES PACKET PER TUBE SCH (08:11)
[2021-01-09] MEDS: Furosemide 40 MG/4 ML VIAL SLOW IVP SCH ×2 (08:15→20:51)
[2021-01-09] MEDS ORDERED: Fentanyl CADD 100 ML ONE (09:35)
[2021-01-09] MEDS: Fentanyl CADD 100 ML IV SCH (09:36)
[2021-01-10] MEDS: methylPREDNISolone Sod Succ 40 MG VIAL IVP SCH ×4 (01:04→17:23)
[2021-01-10] MEDS: Metoclopramide HCl 10 MG/2 ML VIAL IVP SCH ×4 (01:05→20:57)
[2021-01-10] MEDS ORDERED: Fentanyl CADD 100 ML ONE ×2 (01:37→15:13)
[2021-01-10] MEDS: Fentanyl CADD 100 ML IV SCH ×2 (01:41→15:15)
[2021-01-10 04:25] LABS: Anion Gap 12 mmol/L (10-20); BUN (Urea Nitrogen) 41 mg/dL (8.4-25.7); Calc. Creatinine Clearance 123 mL/min (70-130); Carbon Dioxide 32 mmol/L (22-29); Chloride 100 mmol/L (98-107); Glucose 131 mg/dL (70-105); Potassium 3.4 mmol/L (3.5-5.1); Sodium 141 mmol/L (136-145)
[2021-01-10 04:35] LABS: Band 2 % (5-11); Hemoglobin 12.7 g/dL (14.0-18.0); Hypochromia SLIGHT = 6-15 cells (100X) (0-5/hpf); Lymphocytes 1 % (21-51); MDiff Complete? YES; Macrocytosis SLIGHT = 6-15 cells (100X) (0-5/hpf); Mean Corpuscular HGB CONC 31.9 g/dL (32.0-36.0); Mean Corpuscular Hemoglobin 32.3 pg (27.0-31.0); Mean Platelet Volume 8.3 fL (7.4-10.4); Monocytes 3 % (0-10); Neutrophil 94 % (42-75); Platelet Count 191 thou/uL (130-400); Platelet Morphology Comment Appears Adequate; RBC Distribution Width 13.3 % (11.5-14.5); Red Blood Cell (RBC) Count 3.94 mill/uL (4.70-6.10); White Blood Cell (WBC) Count 18.5 thou/uL (4.8-10.8)
[2021-01-10] MEDS: Propofol 1,000 MG/100 ML VIAL IV PRN ×2 (05:29→11:17)
[2021-01-10 07:09] LABS: Actual Bicarbonate (HCO3a) 32.6 mEq/L (22-28); Base Excess (BEa) 5.7 mEq/L (-2.0 to +3.0); CO2 Tension 57.5 mmHg (35.0-45.0); Calcium, Ionized (arterial) 1.14 mmol/L (1.12-1.30); Carboxyhemoglobin (COHb) 0.4 gm% (0.0-3.0); Hemoglobin (Hb) 13.2 g/dL (14.0-18.0); Potassium - ABG Lab 3.16 mmol/L (3.70-5.30); pH, Arterial 7.37 (7.35-7.45)
[2021-01-10 07:10] LABS: O2 Tension (PaO2), arterial 50.2 mmHg (80.0-100.0); Puncture Site RRA
[2021-01-10 07:11] LABS: ALV-art Gradient 590.925 mmHg (0-20)
[2021-01-10] MEDS: Lopinavir/Ritonavir 80 MG/20 MG per ML Oral Solution PER TUBE SCH ×2 (08:17→20:57)
[2021-01-10] MEDS: Pantoprazole 40 MG GRANULES PACKET PER TUBE SCH (08:17)
[2021-01-10] MEDS: Ascorbic Acid 500 mg Chewable Tablet PER TUBE SCH ×2 (08:17→20:57)
[2021-01-10] MEDS: Furosemide 40 MG/4 ML VIAL SLOW IVP SCH ×2 (08:18→20:57)
[2021-01-10 08:31] LABS: Actual Bicarbonate (HCO3a) 25.1 mEq/L (22-28); Base Excess (BEa) 4.4 mEq/L (-2.0 to +3.0); CO2 Tension 26.7 mmHg (35.0-45.0); Calcium, Ionized (arterial) 1.08 mmol/L (1.12-1.30); Carboxyhemoglobin (COHb) 0.5 gm% (0.0-3.0); Hemoglobin (Hb) 13.2 g/dL (14.0-18.0); Potassium - ABG Lab 3.46 mmol/L (3.70-5.30)
[2021-01-10 08:34] LABS: O2 Tension (PaO2), arterial 58.5 mmHg (80.0-100.0); Puncture Site RRA; pH, Arterial 7.59 (7.35-7.45)
[2021-01-10 08:35] LABS: ALV-art Gradient 585.475 mmHg (0-20)
[2021-01-10] MEDS: Potassium Bicarbonate/Cit Ac 20 MEQ TAB PO SCH (09:42)
[2021-01-10] MEDS ORDERED: Norepinephrine 8 MG/0.9% NS 0 ML ONE (12:04)
[2021-01-10] MEDS ORDERED: Furosemide 40 MG/4 ML VIAL SLOW IVP SCH (12:15)
[2021-01-10] MEDS ORDERED: Norepinephrine 8 MG/250 ML IVPB SCH (13:00)
[2021-01-11] MEDS: methylPREDNISolone Sod Succ 40 MG VIAL IVP SCH ×4 (00:15→17:19)
[2021-01-11] MEDS: Metoclopramide HCl 10 MG/2 ML VIAL IVP SCH ×4 (02:15→21:08)
[2021-01-11] MEDS ORDERED: Fentanyl CADD 100 ML ONE (04:13)
[2021-01-11] MEDS: Fentanyl CADD 100 ML IV SCH ×2 (04:20→17:44)
[2021-01-11 04:34] LABS: Hemoglobin 13.7 g/dL (14.0-18.0); Mean Corpuscular HGB CONC 33.2 g/dL (32.0-36.0); Mean Corpuscular Hemoglobin 32.3 pg (27.0-31.0); Mean Corpuscular Volume 97.4 fL (78.0-98.0); Platelet Count 237 thou/uL (130-400); RBC Distribution Width 13.5 % (11.5-14.5); Red Blood Cell (RBC) Count 4.25 mill/uL (4.70-6.10)
[2021-01-11 04:48] LABS: Anion Gap 19 mmol/L (10-20); BUN (Urea Nitrogen) 53 mg/dL (8.4-25.7); Calc. Creatinine Clearance 95 mL/min (70-130); Calcium 8.3 mg/dL (7.8-10.44); Carbon Dioxide 26 mmol/L (22-29); Chloride 101 mmol/L (98-107); Glucose 140 mg/dL (70-105); Sodium 143 mmol/L (136-145)
[2021-01-11 04:55] LABS: Potassium 2.9 mmol/L (3.5-5.1)
[2021-01-11 04:56] LABS: Band 1 % (5-11); MDiff Complete? YES; Mean Platelet Volume 8.7 fL (7.4-10.4); Metamyelocyte 2 % (0-0); Myelocyte 1 % (0-0); Neutrophil 96 % (42-75); Platelet Morphology Comment Appears Adequate; White Blood Cell (WBC) Count 26.1 thou/uL (4.8-10.8)
[2021-01-11] MEDS: Potassium Chloride 40 MEQ in Sodium Chloride 0.9% 250 ML 250 ML IVPB SCH ×2 (05:44→09:46)
[2021-01-11] MEDS ORDERED: Morphine 4 MG/ML VIAL SLOW IVP PRN (06:31)
[2021-01-11 06:41] LABS: Actual Bicarbonate (HCO3a) 23.7 mEq/L (22-28); Base Excess (BEa) 6.8 mEq/L (-2.0 to +3.0); Calcium, Ionized (arterial) 1.04 mmol/L (1.12-1.30); Carboxyhemoglobin (COHb) 0.3 gm% (0.0-3.0); Hemoglobin (Hb) 14.1 g/dL (14.0-18.0); O2 Tension (PaO2), arterial 271.9 mmHg (80.0-100.0); Potassium - ABG Lab 2.86 mmol/L (3.70-5.30)
[2021-01-11 07:14] LABS: CO2 Tension 17.8 mmHg (35.0-45.0); Puncture Site LRA; pH, Arterial 7.74 (7.35-7.45)
[2021-01-11] MEDS: Potassium Bicarbonate/Cit Ac 20 MEQ TAB PO SCH (08:04)
[2021-01-11] MEDS ORDERED: Electrolyte Replacement Protocol 1 EACH FS PRN (08:53)
[2021-01-11] MEDS: VANCOMYCIN 1.25 GM/250 ML BAG 1.25 GM in Premix Bag 1 BAG IVPB SCH ×2 (09:46→21:11)
[2021-01-11] MEDS: Cefepime 1 GM in Sodium Chloride 0.9% 100 ML IVPB SCH ×2 (09:46→21:05)
[2021-01-11] MEDS: Furosemide 40 MG/4 ML VIAL SLOW IVP SCH ×2 (09:48→11:10)
[2021-01-11] MEDS: Pantoprazole 40 MG GRANULES PACKET PER TUBE SCH (09:48)
[2021-01-11] MEDS: Ascorbic Acid 500 mg Chewable Tablet PER TUBE SCH ×2 (09:48→21:07)
[2021-01-11] MEDS: Lopinavir/Ritonavir 80 MG/20 MG per ML Oral Solution PER TUBE SCH ×2 (09:51→21:08)
[2021-01-11 11:10] LABS: Fungus Stain Final report (.)
[2021-01-11 13:34] VITALS: BMI 25.4
[2021-01-11 15:18] LABS: Potassium 3.5 mmol/L (3.5-5.1)
[2021-01-12] MEDS: Metoclopramide HCl 10 MG/2 ML VIAL IVP SCH ×2 (01:16→08:36)
[2021-01-12] MEDS: methylPREDNISolone Sod Succ 40 MG VIAL IVP SCH ×2 (01:16→05:36)
[2021-01-12 04:35] LABS: Anion Gap 18 mmol/L (10-20); BUN (Urea Nitrogen) 48 mg/dL (8.4-25.7); Calc. Creatinine Clearance 111 mL/min (70-130); Calcium 8.2 mg/dL (7.8-10.44); Carbon Dioxide 26 mmol/L (22-29); Chloride 105 mmol/L (98-107); Glucose 151 mg/dL (70-105); Potassium 3.7 mmol/L (3.5-5.1); Sodium 145 mmol/L (136-145)
[2021-01-12 04:39] LABS: Hemoglobin 12.8 g/dL (14.0-18.0); Mean Corpuscular HGB CONC 31.8 g/dL (32.0-36.0); Mean Corpuscular Hemoglobin 31.6 pg (27.0-31.0); Mean Corpuscular Volume 99.4 fL (78.0-98.0); Mean Platelet Volume 9.2 fL (7.4-10.4); Platelet Count 202 thou/uL (130-400); RBC Distribution Width 13.7 % (11.5-14.5); Red Blood Cell (RBC) Count 4.03 mill/uL (4.70-6.10); White Blood Cell (WBC) Count 30.9 thou/uL (4.8-10.8)
[2021-01-12 05:23] LABS: Band 16 % (5-11); Lymphocytes 2 % (21-51); MDiff Complete? YES; Neutrophil 82 % (42-75)
[2021-01-12] MEDS ORDERED: Fentanyl CADD 100 ML ONE (05:24)
[2021-01-12] MEDS: Fentanyl CADD 100 ML IV SCH (05:36)
[2021-01-12 07:27] LABS: Actual Bicarbonate (HCO3a) 27.7 mEq/L (22-28); Base Excess (BEa) 6.1 mEq/L (-2.0 to +3.0); CO2 Tension 31.1 mmHg (35.0-45.0); Carboxyhemoglobin (COHb) 0.6 gm% (0.0-3.0); Hemoglobin (Hb) 13.7 g/dL (14.0-18.0)
[2021-01-12 07:28] LABS: Calcium, Ionized (arterial) 1.07 mmol/L (1.12-1.30); O2 Tension (PaO2), arterial 56.6 mmHg (80.0-100.0); pH, Arterial 7.57 (7.35-7.45)
[2021-01-12 07:29] LABS: ALV-art Gradient 261.025 mmHg (0-20); Puncture Site LRA
[2021-01-12] MEDS: Ascorbic Acid 500 mg Chewable Tablet PER TUBE SCH (08:07)
[2021-01-12] MEDS: Furosemide 40 MG/4 ML VIAL SLOW IVP SCH (08:07)
[2021-01-12] MEDS: Potassium Bicarbonate/Cit Ac 20 MEQ TAB PO SCH (08:08)
[2021-01-12] MEDS: Pantoprazole 40 MG GRANULES PACKET PER TUBE SCH (08:08)
[2021-01-12] MEDS ORDERED: Micafungin 100 MG in Sodium Chloride 0.9% 100 ML IVPB SCH (08:30)
[2021-01-12] MEDS: Lopinavir/Ritonavir 80 MG/20 MG per ML Oral Solution PER TUBE SCH (08:36)
[2021-01-12] MEDS ORDERED: HEMLIBRA SC SCH (09:00)
[2021-01-12] MEDS ORDERED: Lidocaine 1% w/Epinephrine 1:100K 20 ML VIAL ONE (09:26)
[2021-01-12] MEDS ORDERED: Lidocaine 1% (PF) 30 ML VIAL ONE (09:26)
[2021-01-12] MEDS: Cefepime 1 GM in Sodium Chloride 0.9% 100 ML IVPB SCH (10:00)
[2021-01-12] MEDS: VANCOMYCIN 1.25 GM/250 ML BAG 1.25 GM in Premix Bag 1 BAG IVPB SCH (10:00)
[2021-01-12 11:00] VITALS: BP 128/77
[2021-01-12] MEDS ORDERED: Lorazepam 2 MG/ML VIAL SLOW IVP PRN (12:02)
[2021-01-12] MEDS ORDERED: Morphine 4 MG/ML VIAL SLOW IVP PRN (12:02)
[2021-01-12] MEDS ORDERED: Morphine 10 MG/ML VIAL SLOW IVP PRN (12:05)
[2021-01-12] MEDS: Lorazepam 2 MG/ML VIAL SLOW IVP PRN (12:30)
[2021-01-12 13:16] VITALS: TEMP 102.9
[2021-01-12] MEDS ORDERED: methylPREDNISolone Sod Succ 40 MG VIAL IVP SCH (21:00)
== END 2021-01-12 12:57 | disposition expired | DRG 974 ==
LOC: ERS 14:24 → CCU 19:44
PROVIDERS: ADMIT Internal Medicine; ATTEND Internal Medicine
PROC: 5A1955Z Respiratory Ventilation, Greater than 96 Consecutive Hours (ICD-10-PCS; principal; 2020-12-28)
PROC: 02H633Z Insertion of Infusion Device into Right Atrium, Percutaneous Approach (ICD-10-PCS; 2020-12-28)
PROC: B548ZZA Ultrasonography of Superior Vena Cava, Guidance (ICD-10-PCS; 2020-12-28)
PROC: 0D9770Z Drainage of Stomach, Pylorus with Drainage Device, Via Natural or Artificial Opening (ICD-10-PCS; 2020-12-28)
PROC: 0BH17EZ Insertion of Endotracheal Airway into Trachea, Via Natural or Artificial Opening (ICD-10-PCS; 2020-12-28)
PROC: 3E033XZ Introduction of Vasopressor into Peripheral Vein, Percutaneous Approach (ICD-10-PCS; 2020-12-28)
PROC: 0B9F8ZX Drainage of Right Lower Lung Lobe, Via Natural or Artificial Opening Endoscopic, Diagnostic (ICD-10-PCS; 2021-01-05)
PROC: 0W9930Z Drainage of Right Pleural Cavity with Drainage Device, Percutaneous Approach (ICD-10-PCS; 2021-01-12)
DX: A41.9 Sepsis, unspecified organism (principal); D66 Hereditary factor VIII deficiency; B20 Human immunodeficiency virus [HIV] disease; J96.01 Acute respiratory failure with hypoxia; J96.02 Acute respiratory failure with hypercapnia; J18.9 Pneumonia, unspecified organism; G93.41 Metabolic encephalopathy; I21.A1 Myocardial infarction type 2; E87.2 Acidosis; N17.9 Acute kidney failure, unspecified; M80.88XA Other osteoporosis with current pathological fracture, vertebra(e), initial encounter for fracture; I42.9 Cardiomyopathy, unspecified; F11.20 Opioid dependence, uncomplicated; J44.1 Chronic obstructive pulmonary disease with (acute) exacerbation; J44.0 Chronic obstructive pulmonary disease with (acute) lower respiratory infection; I50.22 Chronic systolic (congestive) heart failure; E87.3 Alkalosis; J93.9 Pneumothorax, unspecified; Z20.822 Contact with and (suspected) exposure to COVID-19; Z66 Do not resuscitate; I73.9 Peripheral vascular disease, unspecified; F17.210 Nicotine dependence, cigarettes, uncomplicated; E87.5 Hyperkalemia; I49.3 Ventricular premature depolarization; R74.8 Abnormal levels of other serum enzymes; E04.1 Nontoxic single thyroid nodule; E88.09 Other disorders of plasma-protein metabolism, not elsewhere classified; R65.20 Severe sepsis without septic shock; G25.81 Restless legs syndrome; I11.0 Hypertensive heart disease with heart failure; L97.529 Non-pressure chronic ulcer of other part of left foot with unspecified severity; L97.519 Non-pressure chronic ulcer of other part of right foot with unspecified severity; L89.321 Pressure ulcer of left buttock, stage 1; I49.1 Atrial premature depolarization; I83.028 Varicose veins of left lower extremity with ulcer other part of lower leg; G89.29 Other chronic pain; M25.569 Pain in unspecified knee; I25.10 Atherosclerotic heart disease of native coronary artery without angina pectoris; E87.6 Hypokalemia; Z78.1 Physical restraint status; Z88.2 Allergy status to sulfonamides; Z90.49 Acquired absence of other specified parts of digestive tract; Z88.6 Allergy status to analgesic agent; Z88.8 Allergy status to other drugs, medicaments and biological substances; Z86.19 Personal history of other infectious and parasitic diseases; Z80.42 Family history of malignant neoplasm of prostate; Z80.0 Family history of malignant neoplasm of digestive organs; Z79.899 Other long term (current) drug therapy; Z99.3 Dependence on wheelchair
CPT/HCPCS: 0240U; 31500; 31624; 36415; 36556; 36600; 51702; 70450; 71045; 71275; 76705; 80048; 80053; 80061; 80202; 80306; 80307; 81003; 81015; 82140; 82553; 82805; 83605; 84478; 84484; 85025; 85048; 85060; 86361; 87040; 87070; 87077; 87086; 87102; 87186; 87205; 87206; 87536; 88112; 88312; 89051; 93005; 93306; 94002; 94003; 94640; 94660; 94760; 96365; 96366; 96375; 99292; C9113; C9399; J0692; J1250; J1940; J2001; J2060; J2248; J2250; J2270; J2310; J2704; J2765; J2920; J3010; J3370; J3480; J3490; J7050; J7620; P9045; Q9967